=== PATIENT | male | born 1990 | race Two or more races ===

== ENCOUNTER 2025-09-22 06:52 | Emergency (ER) | payer SELFPAY ==
[2025-09-22 06:52] VITALS: BMI 21.7
[2025-09-22 07:16] VITALS: BP 123/75; PULSE 91; RESP 16; TEMP 36.7; O2SAT 98
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
== END 2025-09-22 09:15 | disposition home or self-care (01) ==
PROVIDERS: Emergency Provider Emergency Medicine
DX: S13.4XXA Sprain of ligaments of cervical spine, initial encounter (principal); V49.9XXA Car occupant (driver) (passenger) injured in unspecified traffic accident, initial encounter
CPT/HCPCS: 70450; 72125; 99282